=== PATIENT | female | born 1950 | race American Indian/Alaskan Native ===

== ENCOUNTER 2017-08-15 06:47 | Day surgery (SDC) | payer MEDICARE, BC ==
[2017-08-15 07:10] VITALS: BMI 26.5
[2017-08-15] MEDS ORDERED: Propofol 10 mg/ml Inj (20 ML) ONE ×2 (08:09→08:25)
--- NOTE | 2017-08-15 08:15 | CP.SDSHP ---
Same Day Surgery H & P - History Proposed Procedure: EGD with balloon dilatation Pre-Op Diagnosis: Esophageal stricture, dysphagia - Previous Medical/Surgical History Endocrine/Metabolic: Diabetes, Other (Hyperlipidemia) Misc: Other (SLE. Duarte's Esophagus) Previous Surgical History: Bilat THR. OOphopectomy. Esophageal reflux surgery. Back surgery - Allergies Allergies: Allergies ciprofloxacin [From Cipro] Allergy (Verified 11/17/15 08:24) URTICARIA nabumetone [From Relafen] Allergy (Verified 11/17/15 08:24) URTICARIA hayfever Allergy (Uncoded 11/17/15 08:26) WHEEZING - Current Medications Current Medications: reviewed, see list - Physical Exam General Appearance: wdwn nad Vital Signs: Vital Signs 08/15/17 08/15/17 07:22 07:52 Temperature 97.8 F 97.8 F Pulse Rate 60 60 Respiratory 18 18 Rate Blood Pressure 157/68 H 157/68 H O2 Sat by Pulse 100 100 Oximetry Mental Status: Alert & Oriented x3 Heart: WNL Lungs: WNL GI: WNL - {Optional Preform as Required} Abdomen: WNL - Impression Impression: dysphagia Pt. Evaluated Today:Candidate for Anesthesia & Procedure: Yes - Date & Time Date: 08/15/17 Time: 08:15 Short Stay Discharge - Short Stay Discharge Admitting Diagnosis/Reason for Visit: DYSPHAGIA Disposition: HOME/ ROUTINE
[2017-08-15 08:50] VITALS: TEMP 97.3
[2017-08-15 09:44] VITALS: BP 165/71; PULSE 61; RESP 15; O2SAT 99
== END 2017-08-15 09:38 | disposition home or self-care (01) ==
LOC: C.SDS 06:47
PROVIDERS: ATTEND Internal Medicine Gastroenterology
DX: K22.2 Esophageal obstruction (principal); K22.70 Barrett's esophagus without dysplasia; B37.81 Candidal esophagitis
CPT/HCPCS: 43239; 43249; 82948; 88104; 88305; C1726